=== PATIENT | male | born 1950 | race Caucasian/White ===

== ENCOUNTER 2018-05-01 23:36 | Inpatient (IN) | payer MEDICARE, MEDICAID ==
[~2018-05-01] VITALS: Ht 121.9 cm; Wt 73.5 kg
--- NOTE | ~2018-05-01 | OP ---
PATIENT NAME: NOELLE MAHMOOD MEDICAL RECORD: [id number] :48 LOCATION:[facility] [id number] ADMISSION DATE:05/01/18 SURGEON: OPHELIA RAHMAN MD DATE OF OPERATION: 05/02/2018 PREOPERATIVE DIAGNOSES: 1. Septicemia. 2. Septic shock. 3. Acute renal failure, requiring hemodialysis. POSTOPERATIVE DIAGNOSES: 1. Septicemia. 2. Septic shock. 3. Acute renal failure, requiring hemodialysis. PROCEDURE: Insertion of right groin common femoral venous Trialysis catheter (nontunneled, noncuffed triple lumen hemodialysis catheter), 24 cm. SURGEON: Ophelia Rahman MD RINKMAN: None. BLOOD LOSS: Minimal. ANESTHESIA: Local. COMPLICATIONS: None. The risks could not be explained to the patient as he is obtunded. No family members were present. Therefore, I proceeded with the procedure as it is necessary in order to save his life. This was essentially an administrative consent. OPERATIVE COURSE: The patient was positioned in the reverse Trendelenburg position. The right groin was sterilely prepped and draped. A local anesthetic was used to infiltrate skin and subcutaneous tissues of the right groin. Right common femoral vein was percutaneously accessed in an antegrade fashion easily. Guidewire passed easily. A small skin asia was accomplished. A vessel dilator was used to dilate subcutaneous tract. A 24-cm Trialysis catheter was inserted to the hub. It was sutured in place times 3. All lumens were flushed easily and aspirated dark, nonpulsatile blood. I have instructed the nursing staff to begin using the Trialysis catheter immediately and to discontinue the single lumen central line in the left groin and culture the tip. 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
[2018-05-01 23:00] VITALS: BP 124/57
[2018-05-02] VITALS (24 sets, daily range): BP systolic 117–138; BP diastolic 49–62; BMI 47.4
[2018-05-02 12:13] LABS: HEMATOCRIT 22.8 % (42.0-54.0); HEMOGLOBIN 7.9 g/dL (13.5-17.5)
[2018-05-02 12:28] LABS: MCH 26.9 pg (26.0-34.0); MCHC 34.3 g/dL (31.0-37.0); MCV 78.2 fL (80.0-100.0); MEAN PLATELET VOLUME 9.6 fL (7.4-10.4); PLATELET COUNT 211 10x3/uL (130-400); RBC 2.94 10x6/uL (4.20-6.10); RDW 15.8 % (11.5-14.5); WBC 41.9 10x3/uL (4.8-10.8)
[2018-05-02 12:49] LABS: LYMPHOCYTES 6 % (15-50); MONOCYTES 2 % (2-11); NEUTROPHILS 84 % (40-80); PLATELET ESTIMATE DECREASED
[2018-05-02 14:02] LABS: ANION GAP 24.8 mmol/L (8-16); CARBON DIOXIDE 19.9 mmol/L (21.0-32.0); CREATININE - SERUM 7.4 mg/dL (0.6-1.3); POTASSIUM - SERUM 3.7 mmol/L (3.5-5.1)
[2018-05-02 14:53] LABS: APPEARANCE CLOUDY (CLEAR); BILIRUBIN NEGATIVE (NEGATIVE); COLOR AMBER (YELLOW); GLUCOSE NEGATIVE (NEGATIVE); KETONE SMALL mg/dL (NEGATIVE); NITRITE NEGATIVE (NEGATIVE); PROTEIN 1+ mg/dL (NEGATIVE); UROBILINOGEN NORMAL (NORMAL)
[2018-05-02 14:59] LABS: AMORPHOUS SEDIMENT >1+ /lpf (NONE SEEN); BACTERIA MANY /hpf (NONE SEEN); EPITHELIAL CELLS 0-5 /hpf (0-5); HYALINE CAST OCC /lpf (NONE SEEN); WHITE CELLS - URINE >50 /hpf (0-5)
[2018-05-03] VITALS (16 sets, daily range): BP systolic 58–143; BP diastolic 38–67; Ht 121.9 cm; Wt 73.5 kg
[2018-05-03 05:05] LABS: WBC 33.6 10x3/uL (4.8-10.8)
[2018-05-03 05:06] LABS: BASOPHILS 0.2 % (0-2); EOSINOPHILS 0.4 % (0-7); HEMATOCRIT 30.3 % (42.0-54.0); HEMOGLOBIN 10.5 g/dL (13.5-17.5); IMMATURE GRANULOCYTES 1.4 % (0-5); MCH 27.9 pg (26.0-34.0); MCHC 34.7 g/dL (31.0-37.0); MCV 80.4 fL (80.0-100.0); MEAN PLATELET VOLUME 9.9 fL (7.4-10.4); MONOCYTES 9.8 % (2-11); NEUTROPHILS 85.2 % (40-80); PLATELET COUNT 157 10x3/uL (130-400); RBC 3.77 10x6/uL (4.20-6.10); RDW 15.9 % (11.5-14.5)
[2018-05-03 05:41] LABS: ALBUMIN 1.4 g/dL (3.4-5.0); ANION GAP 22.9 mmol/L (8-16); BILIRUBIN - TOTAL 0.94 mg/dL (0.2-1.3); CARBON DIOXIDE 18.1 mmol/L (21.0-32.0); CREATININE - SERUM 7.8 mg/dL (0.6-1.3); PROTEIN - SERUM 6.6 g/dL (6.4-8.2); VANCOMYCIN - TROUGH 25.1 ug/mL (10.0-20.0)
[2018-05-03 11:40] LABS: HEMATOCRIT 27.4 % (42.0-54.0); HEMOGLOBIN 9.8 g/dL (13.5-17.5); MCH 28.1 pg (26.0-34.0); MCHC 35.8 g/dL (31.0-37.0); MCV 78.5 fL (80.0-100.0); MEAN PLATELET VOLUME 9.6 fL (7.4-10.4); PLATELET COUNT 216 10x3/uL (130-400); RBC 3.49 10x6/uL (4.20-6.10); RDW 15.8 % (11.5-14.5)
[2018-05-03 12:14] LABS: ALBUMIN 1.7 g/dL (3.4-5.0); ALKALINE PHOSPHATASE 89 U/L (46-116); BILIRUBIN - TOTAL 0.84 mg/dL (0.2-1.3); CALCIUM 7.6 mg/dL (8.5-10.1); CHLORIDE - SERUM 99 mmol/L (98-107); CKMB 9.2 U/L (0.0-3.6); GLUCOSE 110 mg/dL (74-106); PROTEIN - SERUM 7.8 g/dL (6.4-8.2); SODIUM 139 mmol/L (136-145)
[2018-05-03 12:16] LABS: ALT (SGPT) 29 U/L (10-68); CALC OSMOLALITY 279 mosm/kg (275-300); CARBON DIOXIDE 27.9 mmol/L (21.0-32.0); CREATINE KINASE 1297 UL (21-232); CREATININE - SERUM 2.1 mg/dL (0.6-1.3); UREA NITROGEN 14 mg/dL (7-18); eGFR NON AFRICAN AMERICAN 33 mL/min (90-120)
[2018-05-03 12:18] LABS: POTASSIUM - SERUM 2.4 mmol/L (3.5-5.1)
[2018-05-03 12:19] LABS: TROPONIN-I 9.434 ng/mL (0.000-0.060)
== END 2018-05-03 11:29 | DRG 314 ==
LOC: D.ICU 23:36
PROVIDERS: Internal Medicine Nephrology
PROC: 06HY33Z Insertion of Infusion Device into Lower Vein, Percutaneous Approach (ICD-10-PCS; principal; 2018-05-02)
DX: T82.7XXA Infection and inflammatory reaction due to other cardiac and vascular devices, implants and grafts, initial encounter (principal); A41.9 Sepsis, unspecified organism; R65.21 Severe sepsis with septic shock; N18.6 End stage renal disease; G92 Toxic encephalopathy; N17.9 Acute kidney failure, unspecified; I12.0 Hypertensive chronic kidney disease with stage 5 chronic kidney disease or end stage renal disease; E87.2 Acidosis; E11.22 Type 2 diabetes mellitus with diabetic chronic kidney disease; Z99.2 Dependence on renal dialysis; D63.1 Anemia in chronic kidney disease; Z89.612 Acquired absence of left leg above knee; Z89.611 Acquired absence of right leg above knee; I46.9 Cardiac arrest, cause unspecified